=== PATIENT | female | born 1960 | race Caucasian/White ===

== ENCOUNTER → 2018-09-19 | Outpatient (CLI) | payer BC | LOC: COL.RAD 11:30 | DX: E04.2 Nontoxic multinodular goiter (principal) ==

== ENCOUNTER 2018-12-12 21:15 | Emergency (ER) | payer BC ==
[~2018-12-12] VITALS: Ht 175.3 cm; Wt 68.2 kg
[2018-12-12 21:23] VITALS: BP 158/83; PULSE 90; TEMP 99.1
[2018-12-12] MEDS ORDERED: PROMETRIUM200 M1 PO (21:37)
[2018-12-12] MEDS ORDERED: ESTRADERM0.05 MG/24 TD (21:38)
[2018-12-12] MEDS ORDERED: SYNTHROID0.1 MG/TAB PO (21:39)
[2018-12-12] MEDS ORDERED: PREDNISONE20 MG PO (23:01)
== END 2018-12-12 23:29 | disposition home or self-care (01) ==
LOC: COL.ER 21:15
DX: H61.21 Impacted cerumen, right ear (principal); H93.11 Tinnitus, right ear
CPT/HCPCS: J1100

== ENCOUNTER → 2019-01-09 | Outpatient (CLI) | payer BC ==
[~2019-01-09] MED LIST: ESTRADERM0.05 MG/24 TD; PREDNISONE20 MG PO; PROMETRIUM200 M1 PO; SYNTHROID0.1 MG/TAB PO
[2019-01-09 11:06] LABS: ANION GAP 7 mmol/L (7-16); BLOOD UREA NITROGEN 14 mg/dL (7-17); CALCIUM 8.9 mg/dL (8.4-10.2); CARBON DIOXIDE 26 mmol/L (22-30); CHLORIDE 106 mmol/L (98-107); CREATINE KINASE 36 U/L (30-135); CREATININE, serum 0.74 mg/dL (0.52-1.25); GLUCOSE 100 mg/dL (74-106); POTASSIUM 4.3 mmol/L (3.4-5.0); SODIUM 140 mmol/L (137-145)
[2019-01-09 11:07] LABS: C-REACTIVE PROTEIN < 0.5 mg/dL (0.0-0.9)
[2019-01-10 02:51] LABS: RHEUMATOID FACTOR-SCREEN <15 IU/mL (0-29)
== END ==
LOC: COL.LAB 10:08
PROVIDERS: Family Medicine
DX: E03.9 Hypothyroidism, unspecified (principal); M25.50 Pain in unspecified joint; R25.2 Cramp and spasm